=== PATIENT | female | born 1970 ===

== ENCOUNTER 2018-01-20 16:29 | Inpatient (IN) | payer OTHER ==
[2018-01-20] MEDS ORDERED: Sodium Chloride 0.9% 1,000 ML IV ONE (17:18)
[2018-01-20] MEDS ORDERED: Iohexol 240 (50 ml) PO STA (17:18)
[2018-01-20 17:26] LABS: SQUAMOUS EPITHIAL 2 /hpf (0-5); URINE BACTERIA RARE (<OCC); URINE BILIRUBIN NEGATIVE (NEGATIVE); URINE BLOOD NEGATIVE (NEGATIVE); URINE CLARITY Clear (Clear); URINE COLOR Yellow (YELLOW); URINE GLUCOSE (UA) NORMAL (Normal); URINE LEUKOCYTE ESTERASE NEG Leu/uL (Negative); URINE PROTEIN NEGATIVE (NEGATIVE); URINE UROBILINOGEN NORMAL mg/dL (0.2-1.0)
[2018-01-20] MEDS ORDERED: Iodixanol 320 MG/ML 100 ML BOTTLE IV ONE (17:27)
[2018-01-20] MEDS ORDERED: Sodium Chloride 0.9% 1,000 ML ONE (17:29)
[2018-01-20] MEDS ORDERED: Iohexol 240 (50 ml) ONE (17:29)
[2018-01-20 17:33] LABS: HCG,QUALITATIVE URINE NEGATIVE (NEGATIVE)
[2018-01-20 17:48] LABS: BASO # 0.1 K/uL (0.0-0.2); BASO % 0.9 % (0.0-2.0); EOS % 0.3 % (0.0-4.0); HEMOGLOBIN 13.8 g/dL (11.0-16.0); LYMPH # 1.3 K/uL (1.0-4.3); LYMPH % 14.1 % (20.0-40.0); MEAN CELL VOLUME 89.7 fL (81.0-99.0); MEAN CORPUSCULAR HGB CONC 34.6 g/dL (33.0-37.0); MEAN PLATELET VOLUME 9.2 fL (7.2-11.7); MONO # 0.3 K/uL (0.0-0.8); MONO % 3.5 % (0.0-10.0); NEUT # 7.8 K/uL (1.8-7.0); NEUT % 81.2 % (50.0-75.0); RBC 4.46 Mil/uL (3.80-5.20); RED CELL DISTRIBUTION WIDTH 12.7 % (11.5-14.5); WHITE BLOOD COUNT 9.6 K/uL (4.8-10.8)
--- NOTE | 2018-01-20 17:54 | C.PDOC ---
History Of Present Illness Patient presents to ED c/o diffuse abdominal pain, nausea, vomiting and constipation that began 3 days ago. She states she had a very small BM yesterday. Patient denies fever, chest pain, SOB, dysuria, vaginal bleeding/ discharge. PMx of ex lap for persistent left sided abdominal pain, however patient states current pain is different. Time Seen by Provider: 01/20/18 16:40 Chief Complaint (Nursing): Abdominal Pain History Per: Patient History/Exam Limitations: no limitations Onset/Duration Of Symptoms: Days Current Symptoms Are (Timing): Still Present Severity: Moderate Location Of Pain/Discomfort: Diffuse (greatest on left sife ) Associated Symptoms: Nausea, Vomiting, Constipation. denies: Fever, Chills, Diarrhea, Urinary Symptoms Past Medical History Reviewed: Historical Data, Nursing Documentation, Vital Signs Vital Signs: Last Vital Signs Temp 97.5 F L 01/20/18 16:44 Pulse 64 01/20/18 16:44 Resp 20 01/20/18 16:44 BP 115/69 01/20/18 16:44 Pulse Ox 100 01/20/18 17:53 - Medical History PMH: HTN Other Surgeries: ex lap Family History: States: No Known Family Hx - Social History Hx Alcohol Use: No Hx Substance Use: No - Immunization History Hx Tetanus Toxoid Vaccination: No Hx Influenza Vaccination: No Hx Pneumococcal Vaccination: No Review Of Systems Constitutional: Negative for: Fever, Chills Cardiovascular: Negative for: Chest Pain Respiratory: Negative for: Shortness of Breath Gastrointestinal: Positive for: Nausea, Vomiting, Abdominal Pain, Constipation. Negative for: Diarrhea Genitourinary: Negative for: Dysuria, Hematuria, Vaginal Discharge, Vaginal Bleeding Physical Exam - Physical Exam Appears: Well, Non-toxic, In Acute Distress (in moderate pain, moaning ) Skin: Normal Color, Warm, Dry Oral Mucosa: Moist Cardiovascular: Rhythm Regular Respiratory: Normal Breath Sounds, No Rales, No Rhonchi, No Wheezing Gastrointestinal/Abdominal: Bowel Sounds, Soft, Tenderness (diffuse TTP greatest at left periumbilical area, healed surgical scar inferior to umbilicus) Back: Normal Inspection, No CVA Tenderness ED Course And Treatment - Laboratory Results Result Diagrams: 01/20/18 17:41 O2 Sat by Pulse Oximetry: 100 (RA) Pulse Ox Interpretation: Normal Progress Note: Blood work, UA, CT scan abd/pelvis with PO contrast. Patient given IV NS bolus, IV toradol, IV zofran. Disposition - Disposition Disposition Time: 18:00 Condition: STABLE Forms: [facility] (B[place]i) - Clinical Impression Clinical Impression: Abdominal pain, Nausea, Vomiting Physician Patient Turnover Patient Signed Over To: Shanta French Handoff Comments: pending CT scan, labs, reassessment
[2018-01-20 18:02] LABS: ALB/GLOB RATIO 1.4 (1.0-2.1); ALBUMIN 4.5 g/dL (3.5-5.0); ALT/SGPT 21 U/L (9-52); AST/SGOT 18 U/L (14-36); BLOOD UREA NITROGEN 13 mg/dL (7-17); CALCIUM 9.5 mg/dl (8.6-10.4); GFR NON-AFRICAN AMERICAN > 60; LIPASE 121 U/L (23-300)
[2018-01-20] MEDS: Sodium Chloride 0.9% 1,000 ML IV SCH (22:35)
--- NOTE | 2018-01-21 00:14 | CP.PCM.HP ---
Addendum entered and electronically signed by Estephania Yanez DO 01/21/18 03:31: ROS POSITIVES: Abdominal Pain, Bloating, Nausea, Vomiting, constipation. NEGATIVES: Fever, chills, headache, lightheadedness, chest pain, palpitations , shortness of breath, urinary symptoms. Original Note: <Estephania Yaenz - Last Filed: 01/21/18 01:36> History of Present Illness - History of Present Illness History of Present Illness: Ms. Gray is a 47 year old female with a PMHx of Gastritis who presents with complaints of sharp, 10/10, constant, worsening abdominal pain that radiates to the back x 3 days. Patient states that although this episode of abdominal pain started 3 days ago, she has been suffering from chronic abdominal pain for over a year. She stated that she had a colonoscopy 1 month ago which showed gastritis. She was then started on Omeprazole and an unspecified antibiotic which course she completed. Patient also said she recently had a CT [place] of the [place] which showed obstruction. Associated symptoms include nausea, 15 episodes of non-bloody vomiting, bloating, and constipation. She admits to a small bowel movement in the afternoon of admission day and flatulence in the morning of admission day. She stated she had to strain to pass gas and to have a bowel movement. ROS POSITIVES: Abdominal Pain, Bloating, Vomiting, constipation. PMHx: Gastritis PSHx: Exploratory Lap due to persistent left sided abdominal pain. Colonoscopy ( 1 month ago) Allergies: NKDA SocialHx: Denies tobacco, Social EtOH use, Denies illicit drug use FamHx: Denies Meds: Atenolol 50mg Daily Present on Admission - Present on Admission Any Indicators Present on Admission: No Review of Systems - Review of Systems All systems: reviewed and no additional remarkable complaints except (As per HPI ) Review of Systems: As per HPI Past Patient History - Infectious Disease Hx of Infectious Diseases: None - Past Social History Smoking Status: Never Smoked - CARDIAC Hx Hypertension: Yes - GENITOURINARY/GYNECOLOGICAL Other/Comment: Hx of fibroids with removal - PSYCHIATRIC Hx Substance Use: No - SURGICAL HISTORY Hx Surgeries: Yes Other/Comment: Laparsocopy exploratory surgery less than a year ago 01/20/2018 - ANESTHESIA Hx Anesthesia: Yes Hx Anesthesia Reactions: No Hx Malignant Hyperthermia: No Meds Allergies/Adverse Reactions: Allergies Allergy/AdvReac Type Severity Reaction Status Date / Time No Known Allergies Allergy Verified 01/20/18 16:43 Physical Exam - Constitutional Appears: Well, Non-toxic, No Acute Distress - Head Exam Head Exam: ATRAUMATIC, NORMAL INSPECTION, NORMOCEPHALIC - Eye Exam Eye Exam: Normal appearance. absent: Scleral icterus - ENT Exam ENT Exam: Mucous Membranes Moist - Neck Exam Neck exam: Positive for: Normal Inspection. Negative for: Lymphadenopathy - Respiratory Exam Respiratory Exam: Clear to Auscultation Bilateral. absent: Rales, Rhonchi, Wheezes - Cardiovascular Exam Cardiovascular Exam: RRR, +S1, +S2 - GI/Abdominal Exam GI & Abdominal Exam: Normal Bowel Sounds, Soft, Tenderness (Diffuse). absent: Distended, Firm, Guarding, Hernia, Rebound Additional comments: Surgical Scar inferior to umbilicus. - Extremities Exam Extremities exam: Positive for: normal capillary refill, normal inspection. Negative for: pedal edema - Neurological Exam Neurological exam: Alert, Oriented x3 - Psychiatric Exam Psychiatric exam: Normal Affect, Normal Mood - Skin Skin Exam: Dry, Intact, Normal Color, Warm Results - Vital Signs Recent Vital Signs: Last Vital Signs Temp 98 F 01/20/18 21:05 Pulse 67 01/20/18 23:17 Resp 16 01/20/18 23:17 BP 140/75 01/20/18 23:17 Pulse Ox 97 01/20/18 23:17 - Labs Result Diagrams: 01/20/18 17:41 01/20/18 17:41 Labs: Laboratory Results - last 24 hr 01/20/18 01/20/18 01/20/18 17:08 17:41 17:41 WBC 9.6 RBC 4.46 Hgb 13.8 Hct 40.0 MCV 89.7 MCH 31.0 MCHC 34.6 RDW 12.7 Plt Count 293 MPV 9.2 Neut % (Auto) 81.2 H Lymph % (Auto) 14.1 L [place] % (Auto) 3.5 Eos % (Auto) 0.3 Baso % (Auto) 0.9 Neut # (Auto) 7.8 H Lymph # (Auto) 1.3 [place] # (Auto) 0.3 Eos # (Auto) 0.0 Baso # (Auto) 0.1 Sodium 140 Potassium 4.0 Chloride 102 Carbon Dioxide 23 Anion Gap 18 BUN 13 Creatinine 0.6 L Est GFR ( Amer) > 60 Est GFR (Non-Af Amer) > 60 Random Glucose 145 H Calcium 9.5 Total Bilirubin 0.6 AST 18 ALT 21 Alkaline Phosphatase 83 Total Protein 7.6 Albumin 4.5 Globulin 3.2 Albumin/Globulin Ratio 1.4 Lipase 121 Urine Color Yellow Urine Clarity Clear Urine pH 7.0 Ur Specific [place] 1.014 Urine Protein Negative Urine Glucose (UA) Normal Urine Ketones 1+ H Urine Blood Negative Urine Nitrate Negative Urine Bilirubin Negative Urine Urobilinogen Normal Ur Leukocyte Esterase Neg Urine WBC (Auto) < 1 Urine RBC (Auto) 1 Ur Squamous Epith Cells 2 Urine Bacteria Rare Urine HCG, Qual Negative Assessment & Plan - Assessment and Plan (Free Text) Assessment: 47 year old female with a PMHx of Gastritis who presents with complaints of sharp, 10/10, constant, worsening abdominal pain that radiates to the back x [address] Abd on admission showed small bowel obstruction. Patient admitted for evaluation and treatment of small bowel obstruction. Plan: Small Bowel Obstruction CT Abd/Pelvis (Adm): Partial small bowel obstruction probably 2/2 to post- operative adhesions. ED: Zofran, Prochlorperazine, Fluid Bolus NPO Morphine 1 Q4H PRN Zofran 4 Q6H PRN NS @ 150mls/hr Encourage Ambulation Gen. Surgery Consult (Dr. Izquierdo) Hx of HTN Home med: Atenolol 50mg PO Daily. Hx of Gastritis Protonix 40mg Daily. IV for now. PO when tolerating Diet. Proph Protonix SCDs NPO Patient discussed with Attending Estephania Yanez, PGY-2 <Marco A Franklin - Last Filed: 01/21/18 06:35> Results - Vital Signs Recent Vital Signs: Last Vital Signs Temp 98 F 01/20/18 21:05 Pulse 70 01/21/18 00:35 Resp 14 01/21/18 00:35 BP 128/68 01/21/18 00:35 Pulse Ox 97 01/21/18 02:19 - Labs Result Diagrams: 01/20/18 17:41 01/20/18 17:41 Labs: Laboratory Results - last 24 hr 01/20/18 01/20/18 01/20/18 17:08 17:41 17:41 WBC 9.6 RBC 4.46 Hgb 13.8 Hct 40.0 MCV 89.7 MCH 31.0 MCHC 34.6 RDW 12.7 Plt Count 293 MPV 9.2 Neut % (Auto) 81.2 H Lymph % (Auto) 14.1 L [place] % (Auto) 3.5 Eos % (Auto) 0.3 Baso % (Auto) 0.9 Neut # (Auto) 7.8 H Lymph # (Auto) 1.3 [place] # (Auto) 0.3 Eos # (Auto) 0.0 Baso # (Auto) 0.1 Sodium 140 Potassium 4.0 Chloride 102 Carbon Dioxide 23 Anion Gap 18 BUN 13 Creatinine 0.6 L Est GFR ( Amer) > 60 Est GFR (Non-Af Amer) > 60 Random Glucose 145 H Calcium 9.5 Total Bilirubin 0.6 AST 18 ALT 21 Alkaline Phosphatase 83 Total Protein 7.6 Albumin 4.5 Globulin 3.2 Albumin/Globulin Ratio 1.4 Lipase 121 Urine Color Yellow Urine Clarity Clear Urine pH 7.0 Ur Specific [place] 1.014 Urine Protein Negative Urine Glucose (UA) Normal Urine Ketones 1+ H Urine Blood Negative Urine Nitrate Negative Urine Bilirubin Negative Urine Urobilinogen Normal Ur Leukocyte Esterase Neg Urine WBC (Auto) < 1 Urine RBC (Auto) 1 Ur Squamous Epith Cells 2 Urine Bacteria Rare Urine HCG, Qual Negative Assessment & Plan - Date & Time Date: 01/21/18 (I have seen and examined the patient. I agree with the findings and plan of care as documented by Dr. Yanez. Patient with partial small bowel obstruction. Symptomatic treatment. Consult to surgery. NPO. IVF. Monitor for acute changes.) Time: 06:34 Attending/Attestation - Attestation I have personally seen and examined this patient.: Yes I have fully participated in the care of the patient.: Yes I have reviewed all pertinent clinical information: Yes
[2018-01-21] MEDS ORDERED: Influenza Vaccine 60 mcg/0.5 mL SYR (4YR UP) IM ONE (02:42)
--- NOTE | 2018-01-21 03:10 | CP.PCM.CON ---
<Lei Du - Last Filed: 01/21/18 07:22> History of Present Illness - History of Present Illness History of Present Illness: Gen Surgery Consult Note : Dr. Izquierdo 47F with PMHx of gastritis, and laparotomy done in the [place] for left ovarian cyst. Patient states abdominal pain began approximately three days ago. She's had multiple bouts of emesis. Reports passing flatus and having a bowel movement yesterday. At time of examination denied headache/dizziness, chest pain, SOB, dysuria. Reported nausea and moderate abdominal pain which has improved since admission. PMH: as stated above PSH: ex-lap for L ovarian cyst All : NKDA Review of Systems - Review of Systems Review of Systems: 12 pt ROS reviewed, unremarkable except as stated in HPI Past Patient History - Infectious Disease Hx of Infectious Diseases: None - Past Social History Smoking Status: Never Smoked - CARDIAC Hx Hypertension: Yes - MUSCULOSKELETAL/RHEUMATOLOGICAL Hx Falls: No - GASTROINTESTINAL Hx Bowel Surgery: Yes (exploratory laparotomy) - GENITOURINARY/GYNECOLOGICAL Other/Comment: Hx of fibroids with removal - PSYCHIATRIC Hx Substance Use: No - SURGICAL HISTORY Hx Surgeries: Yes Hx Hysterectomy: Yes (2002) Other/Comment: Laparsocopy exploratory 2017 - ANESTHESIA Hx Anesthesia: Yes Hx Anesthesia Reactions: No Hx Malignant Hyperthermia: No Has any member of the family had a problem w/ anesthesia?: No Meds Allergies/Adverse Reactions: Allergies Allergy/AdvReac Type Severity Reaction Status Date / Time No Known Allergies Allergy Verified 01/20/18 16:43 - Medications Medications: Current Medications Atenolol (Tenormin) 50 mg PO DAILY [facility] Sodium Chloride (Sodium Chloride 0.9%) 1,000 mls @ 150 mls/hr IV .Q6H40M [facility] Last Admin: 01/20/18 22:35 Dose: 150 mls/hr Morphine Sulfate (Morphine) 1 mg IVP Q4H PRN PRN Reason: Pain, severe (8-10) Ondansetron HCl (Zofran Inj) 4 mg IVP Q6H PRN PRN Reason: Nausea/Vomiting Pantoprazole Sodium (Protonix Inj) 40 mg IVP DAILY [facility] Pneumococcal Polyvalent Vaccine (Pneumovax 23 Vaccine) 0.5 ml IM .ONCE ONE Stop: 01/23/18 10:01 Physical Exam - Constitutional Appears: No Acute Distress - Head Exam Head Exam: NORMOCEPHALIC - Eye Exam Eye Exam: Normal appearance - ENT Exam ENT Exam: Mucous Membranes Moist - Respiratory Exam Respiratory Exam: NORMAL BREATHING PATTERN - Cardiovascular Exam Cardiovascular Exam: +S1, +S2 - GI/Abdominal Exam GI & Abdominal Exam: Distended, Soft, Tenderness Additional comments: mild distension epigastric tenderness - Neurological Exam Neurological exam: Alert, Oriented x3 - Psychiatric Exam Psychiatric exam: Normal Mood - Skin Skin Exam: Dry, Intact, Warm Results - Vital Signs Recent Vital Signs: Last Vital Signs Temp 98 F 01/20/18 21:05 Pulse 70 01/21/18 00:35 Resp 14 01/21/18 00:35 BP 128/68 01/21/18 00:35 Pulse Ox 97 01/21/18 02:19 - Labs Result Diagrams: 01/20/18 17:41 01/20/18 17:41 Labs: Laboratory Results - last 24 hr 01/20/18 01/20/18 01/20/18 17:08 17:41 17:41 WBC 9.6 RBC 4.46 Hgb 13.8 Hct 40.0 MCV 89.7 MCH 31.0 MCHC 34.6 RDW 12.7 Plt Count 293 MPV 9.2 Neut % (Auto) 81.2 H Lymph % (Auto) 14.1 L [place] % (Auto) 3.5 Eos % (Auto) 0.3 Baso % (Auto) 0.9 Neut # (Auto) 7.8 H Lymph # (Auto) 1.3 [place] # (Auto) 0.3 Eos # (Auto) 0.0 Baso # (Auto) 0.1 Sodium 140 Potassium 4.0 Chloride 102 Carbon Dioxide 23 Anion Gap 18 BUN 13 Creatinine 0.6 L Est GFR ( Amer) > 60 Est GFR (Non-Af Amer) > 60 Random Glucose 145 H Calcium 9.5 Total Bilirubin 0.6 AST 18 ALT 21 Alkaline Phosphatase 83 Total Protein 7.6 Albumin 4.5 Globulin 3.2 Albumin/Globulin Ratio 1.4 Lipase 121 Urine Color Yellow Urine Clarity Clear Urine pH 7.0 Ur Specific [place] 1.014 Urine Protein Negative Urine Glucose (UA) Normal Urine Ketones 1+ H Urine Blood Negative Urine Nitrate Negative Urine Bilirubin Negative Urine Urobilinogen Normal Ur Leukocyte Esterase Neg Urine WBC (Auto) < 1 Urine RBC (Auto) 1 Ur Squamous Epith Cells 2 Urine Bacteria Rare Urine HCG, Qual Negative - Imaging and Cardiology CT scan - abdomen Status: Image reviewed by me, Report reviewed by me Assessment & Plan - Assessment and Plan (Free Text) Assessment: 47F with pSBO Plan: -NPO -IVF -Analgesic prn -Anti-emetic prn -NGT if n/v worsens or abd distension worsens -Encourage ambulation -Further recs per Dr. Felecia Leiva PGY3 <Maicol Izquierdo - Last Filed: 01/22/18 17:33> Meds - Medications Medications: Current Medications Atenolol (Tenormin) 50 mg PO DAILY [facility] Last Admin: 01/22/18 10:51 Dose: Not Given Sodium Chloride (Sodium Chloride 0.9%) 1,000 mls @ 150 mls/hr IV .Q6H40M [facility] Last Admin: 01/22/18 07:35 Dose: Not Given Morphine Sulfate (Morphine) 1 mg IVP Q4H PRN PRN Reason: Pain, severe (8-10) Last Admin: 01/21/18 19:29 Dose: 1 mg Ondansetron HCl (Zofran Inj) 4 mg IVP Q6H PRN PRN Reason: Nausea/Vomiting Last Admin: 01/21/18 19:34 Dose: 4 mg Pantoprazole Sodium (Protonix Inj) 40 mg IVP DAILY [facility] Last Admin: 01/22/18 10:05 Dose: 40 mg Pneumococcal Polyvalent Vaccine (Pneumovax 23 Vaccine) 0.5 ml IM .ONCE ONE Stop: 01/23/18 10:01 Results - Vital Signs Recent Vital Signs: Last Vital Signs Temp 97.8 F 01/22/18 15:00 Pulse 59 L 01/22/18 15:00 Resp 20 01/22/18 15:00 BP 127/82 01/22/18 15:00 Pulse Ox 97 01/22/18 15:00 - Labs Result Diagrams: 01/22/18 07:25 01/22/18 07:25 Labs: Laboratory Results - last 24 hr 01/22/18 01/22/18 07:25 07:25 WBC 8.7 RBC 3.87 Hgb 12.1 Hct 35.1 MCV 90.8 MCH 31.3 H MCHC 34.5 RDW 13.0 Plt Count 261 MPV 9.5 Neut % (Auto) 63.1 Lymph % (Auto) 28.2 [place] % (Auto) 8.2 Eos % (Auto) 0.2 Baso % (Auto) 0.3 Neut # (Auto) 5.5 Lymph # (Auto) 2.5 [place] # (Auto) 0.7 Eos # (Auto) 0.0 Baso # (Auto) 0.0 Sodium 145 Potassium 3.4 L Chloride 109 H Carbon Dioxide 26 Anion Gap 13 BUN 15 Creatinine 0.7 Est GFR ( Amer) > 60 Est GFR (Non-Af Amer) > 60 Random Glucose 95 Calcium 8.4 L Total Bilirubin 0.5 AST 19 ALT 23 Alkaline Phosphatase 52 Total Protein 6.2 L Albumin 3.4 L Globulin 2.8 Albumin/Globulin Ratio 1.2 Attending/Attestation - Attestation I have personally seen and examined this patient.: Yes I have fully participated in the care of the patient.: Yes I have reviewed all pertinent clinical information: Yes Notes (Text): Pt was seen and examined at bedside Agree with above note and assessment Pt with abdominal distention and discomfort Upper abdominal tenderness Labs and radiology reviewed Ass: PSBO Plan : NPO, IVF Replace K Avoid narcotics Plan d.w pt in detail Risk and benefit explained in detail.
[2018-01-21] MEDS: Sodium Chloride 0.9% 1,000 ML IV SCH ×3 (06:13→19:32)
[2018-01-21 08:32] LABS: ALB/GLOB RATIO 1.2 (1.0-2.1); ALBUMIN 3.8 g/dL (3.5-5.0); ALT/SGPT 22 U/L (9-52); AST/SGOT 16 U/L (14-36); BLOOD UREA NITROGEN 15 mg/dL (7-17); GFR NON-AFRICAN AMERICAN > 60
[2018-01-21 08:39] LABS: BASO % 0.3 % (0.0-2.0); HEMOGLOBIN 13.4 g/dL (11.0-16.0); LYMPH % 9.7 % (20.0-40.0); MEAN CELL VOLUME 90.9 fL (81.0-99.0); MEAN CORPUSCULAR HEMOGLOBIN 30.5 pg (27.0-31.0); MEAN CORPUSCULAR HGB CONC 33.5 g/dL (33.0-37.0); MEAN PLATELET VOLUME 9.6 fL (7.2-11.7); MONO # 0.5 K/uL (0.0-0.8); MONO % 5.3 % (0.0-10.0); NEUT # 8.3 K/uL (1.8-7.0); NEUT % 84.7 % (50.0-75.0); PLATELET COUNT 286 K/uL (130-400); RBC 4.39 Mil/uL (3.80-5.20); RED CELL DISTRIBUTION WIDTH 12.8 % (11.5-14.5); WHITE BLOOD COUNT 9.8 K/uL (4.8-10.8)
--- NOTE | 2018-01-21 09:54 | CT ---
Date of service: 01/20/2018 PROCEDURE: CT Abdomen and Pelvis with contrast HISTORY: LEFT PERIUMBILICAL PAIN, PRIOR EX LAP, R/O SBO COMPARISON: None. TECHNIQUE: Contrast dose: 100 mL Visipaque 320 Radiation dose: Total exam DLP = 912.76 mGy-cm. This CT exam was performed using one or more of the following dose reduction techniques: Automated exposure control, adjustment of the mA and/or kV according to patient size, and/or use of iterative reconstruction technique. FINDINGS: LOWER THORAX: Unremarkable. LIVER: Unremarkable. No gross lesion or ductal dilatation. GALLBLADDER AND BILE DUCTS: Unremarkable. PANCREAS: Unremarkable. No gross lesion or ductal dilatation. SPLEEN: Unremarkable. ADRENALS: Unremarkable. No mass. KIDNEYS AND URETERS: Unremarkable. No hydronephrosis. No solid mass. VASCULATURE: Unremarkable. No aortic aneurysm. BOWEL: Multiple loops of mildly dilated small bowel with long collapsed segment of ileum distal to this dilated small bowel. Findings concerning for mechanical small bowel obstruction. Followup advised. No other abnormal bowel loops are appreciated. APPENDIX: Normal appendix. PERITONEUM: Unremarkable. No free fluid. No free air. LYMPH NODES: Unremarkable. No enlarged lymph nodes. BLADDER: Poorly distended. No gross abnormality. REPRODUCTIVE: Status post hysterectomy BONES: No acute fracture. OTHER FINDINGS: None. IMPRESSION: Findings consistent with mechanical small bowel obstruction. The obstruction though not specifically localized is likely roughly at the level of the jejunoileal junction. Possibly secondary to post surgical adhesion. No additional abnormality demonstrated. The preliminary findings for this examination were reported by [employer] at 8:10 p.m. on 01/20/2018. There is concurrence of this report with the preliminary findings.
[2018-01-21] MEDS ORDERED: Lidocaine 2% Jelly (Uro-Jet) TOP ONE (10:21)
[2018-01-21 10:33] LABS: LYMPHOCYTE 10 % (20-40); MONOCYTE 5 % (0-10); NEUTROPHIL 85 % (50-75); PLATELET ESTIMATE NORMAL (NORMAL); TOTAL CELLS COUNTED 100
--- NOTE | 2018-01-21 14:09 | CP.PCM.PN ---
<Maria Del Rosario Guevara Y - Last Filed: 01/21/18 16:41> Subjective - Date & Time of Evaluation Date of Evaluation: 01/21/18 Time of Evaluation: 09:15 - Subjective Subjective: PGY-1 Medicine Progress Note for Dr. Phelps Patient was seen and examined today at bedside in no acute distress. Patient continues to vomit: Overnight nurse reports no further episodes after midnight. Patient reports two episodes of non-bilious vomit with bloody streaks. She continues to feel nauseous despite ATC anti-emetics. Has not been able to urinate or have a BM since vomiting began. Denies chest pain, shortness of breath, abdominal pain, numbness, tingling, headache. Surgery unable to place NGT after 2 attempts with a 16 [place], will attempt with smaller gauge later this PM. Objective - Vital Signs/Intake and Output Vital Signs (last 24 hours): Temp Pulse Resp BP Pulse Ox 98.2 F 63 18 115/63 100 01/21/18 08:18 01/21/18 08:18 01/21/18 08:18 01/21/18 08:18 01/21/18 08:18 Intake and Output: 01/21/18 01/21/18 06:59 18:59 Intake Total 900 Balance 900 - Medications Medications: Current Medications Atenolol (Tenormin) 50 mg PO DAILY [facility] Last Admin: 01/21/18 10:33 Dose: Not Given Sodium Chloride (Sodium Chloride 0.9%) 1,000 mls @ 150 mls/hr IV .Q6H40M [facility] Last Admin: 01/21/18 06:13 Dose: 150 mls/hr Morphine Sulfate (Morphine) 1 mg IVP Q4H PRN PRN Reason: Pain, severe (8-10) Last Admin: 01/21/18 06:06 Dose: 1 mg Ondansetron HCl (Zofran Inj) 4 mg IVP Q6H PRN PRN Reason: Nausea/Vomiting Last Admin: 01/21/18 06:05 Dose: 4 mg Pantoprazole Sodium (Protonix Inj) 40 mg IVP DAILY [facility] Last Admin: 01/21/18 10:33 Dose: 40 mg Pneumococcal Polyvalent Vaccine (Pneumovax 23 Vaccine) 0.5 ml IM .ONCE ONE Stop: 01/23/18 10:01 - Labs Labs: 01/21/18 08:01 01/21/18 08:01 - Constitutional Appears: Non-toxic, No Acute Distress - Head Exam Head Exam: ATRAUMATIC, NORMOCEPHALIC - Eye Exam Eye Exam: EOMI, Normal appearance - ENT Exam ENT Exam: Mucous Membranes Dry, Normal Exam - Respiratory Exam Respiratory Exam: Clear to Ausculation Bilateral, NORMAL BREATHING PATTERN. absent: Rales, Rhonchi, Wheezes - Cardiovascular Exam Cardiovascular Exam: REGULAR RHYTHM, +S1, +S2. absent: Murmur - GI/Abdominal Exam GI & Abdominal Exam: Soft, Tenderness, Normal Bowel Sounds. absent: Firm, Guarding Additional comments: surgical scar inferior to umbilicus, diffuse tenderness to palpation - Extremities Exam Extremities Exam: Full ROM, Normal Capillary Refill, Normal Inspection. absent : Pedal Edema - Neurological Exam Neurological Exam: Alert, Awake, Oriented x3 - Psychiatric Exam Psychiatric exam: Normal Affect, Normal Mood - Skin Skin Exam: Dry, Intact, Normal Color Assessment and Plan - Assessment and Plan (Free Text) Assessment: 47F PMH gastritis, HTN admitted for SBO. Plan: 1) Small Bowel Obstruction - CT A/P (01/21): SBO roughly at the jejunoileal junction, possibly secondary to surgical adhesion (03/2017) ED: Zofran, Prochlorperazine, Fluid Bolus - General Surgery consulted: Dr. Izquierod - bessie appreciated - no surgical intervention at this time - NGT placement attempts x2 with 16 [place]. will locate a smaller size and retry. - NPO - Morphine 1mg q4h prn - Zofran 4mg q6h prn - NS @ 150mls/hr - encourage ambulation 2) Hx of HTN - home Atenolol 50mg po daily, held while vomiting 3) Hx of Gastritis - Protonix 40mg Daily. IV for now, PO when tolerating diet 4) PPx DVT: chemical AC CI d/t recent GI bleed, SCDs GI: Protonix 40mg daily IV -> PO once tolerating diet NPO, ADAT d/w Dr. Lenin Guevara PGY-1 <Eben Pehlps - Last Filed: 01/24/18 19:20> Objective - Vital Signs/Intake and Output Vital Signs (last 24 hours): Temp Pulse Resp BP Pulse Ox 97.5 F L 65 20 126/77 97 01/24/18 07:00 01/24/18 10:31 01/24/18 07:00 01/24/18 10:31 01/24/18 07:00 - Labs Labs: 01/24/18 06:58 01/24/18 06:58 Attending/Attestation - Attestation I have personally seen and examined this patient.: Yes I have fully participated in the care of the patient.: Yes I have reviewed all pertinent clinical information, including history, physical exam and plan: Yes Notes (Text): 01/24/18 19:20 This is a late entry. Care of this patient was gone over in detail with the resident. Eben Phelps D.O.
[2018-01-21 17:21] VITALS: RESP 20
[2018-01-22] MEDS: Sodium Chloride 0.9% 1,000 ML IV SCH ×3 (00:55→07:35)
[2018-01-22 07:40] LABS: BASO % 0.3 % (0.0-2.0); EOS % 0.2 % (0.0-4.0); HEMOGLOBIN 12.1 g/dL (11.0-16.0); LYMPH # 2.5 K/uL (1.0-4.3); LYMPH % 28.2 % (20.0-40.0); MEAN CELL VOLUME 90.8 fL (81.0-99.0); MEAN CORPUSCULAR HEMOGLOBIN 31.3 pg (27.0-31.0); MEAN CORPUSCULAR HGB CONC 34.5 g/dL (33.0-37.0); MEAN PLATELET VOLUME 9.5 fL (7.2-11.7); MONO # 0.7 K/uL (0.0-0.8); MONO % 8.2 % (0.0-10.0); NEUT # 5.5 K/uL (1.8-7.0); NEUT % 63.1 % (50.0-75.0); NRBC % 0.1 % (0.0-2.0); RBC 3.87 Mil/uL (3.80-5.20); WHITE BLOOD COUNT 8.7 K/uL (4.8-10.8)
[2018-01-22 07:53] LABS: ALB/GLOB RATIO 1.2 (1.0-2.1); ALBUMIN 3.4 g/dL (3.5-5.0); ALT/SGPT 23 U/L (9-52); AST/SGOT 19 U/L (14-36); BLOOD UREA NITROGEN 15 mg/dL (7-17); CALCIUM 8.4 mg/dl (8.6-10.4); GFR NON-AFRICAN AMERICAN > 60
--- NOTE | 2018-01-22 08:21 | CP.PCM.PN ---
<Jorge Nathan - Last Filed: 01/22/18 08:19> Subjective - Date & Time of Evaluation Date of Evaluation: 01/22/18 Time of Evaluation: 08:19 - Subjective Subjective: General Surgery: Dr Izquierdo Pt S&E. HEIDI. Has had multiple liquid BMs, passing flatus. Minimal output from NGT. Pain resolved. Objective - Vital Signs/Intake and Output Vital Signs (last 24 hours): Temp Pulse Resp BP Pulse Ox 97.7 F 65 20 134/74 98 01/21/18 23:20 01/21/18 23:20 01/21/18 23:20 01/21/18 23:20 01/21/18 23:20 Intake and Output: 01/22/18 01/22/18 06:59 18:59 Intake Total 2400 Output Total 50 Balance 2350 - Medications Medications: Current Medications Atenolol (Tenormin) 50 mg PO DAILY [facility] Last Admin: 01/21/18 10:33 Dose: Not Given Sodium Chloride (Sodium Chloride 0.9%) 1,000 mls @ 150 mls/hr IV .Q6H40M [facility] Last Admin: 01/22/18 06:26 Dose: 150 mls/hr Morphine Sulfate (Morphine) 1 mg IVP Q4H PRN PRN Reason: Pain, severe (8-10) Last Admin: 01/21/18 19:29 Dose: 1 mg Ondansetron HCl (Zofran Inj) 4 mg IVP Q6H PRN PRN Reason: Nausea/Vomiting Last Admin: 01/21/18 19:34 Dose: 4 mg Pantoprazole Sodium (Protonix Inj) 40 mg IVP DAILY [facility] Last Admin: 01/21/18 10:33 Dose: 40 mg Pneumococcal Polyvalent Vaccine (Pneumovax 23 Vaccine) 0.5 ml IM .ONCE ONE Stop: 01/23/18 10:01 - Labs Labs: 01/22/18 07:25 01/22/18 07:25 - Constitutional Appears: Non-toxic - ENT Exam ENT Exam: Mucous Membranes Dry - Respiratory Exam Respiratory Exam: absent: Accessory Muscle Use, Respiratory Distress - Cardiovascular Exam Cardiovascular Exam: REGULAR RHYTHM. absent: Tachycardia - GI/Abdominal Exam GI & Abdominal Exam: Soft. absent: Distended, Tenderness Assessment and Plan - Assessment and Plan (Free Text) Assessment: 47F with SBO; resolving Plan: clamp trial NGT will check residuals this afternoon will d/c NGT and start CLD if minimal d/w Dr Felecia Nathan, PGY4 <Maicol Izquierdo - Last Filed: 01/22/18 17:42> Objective - Vital Signs/Intake and Output Vital Signs (last 24 hours): Temp Pulse Resp BP Pulse Ox 97.8 F 59 L 20 127/82 97 01/22/18 15:00 01/22/18 15:00 01/22/18 15:00 01/22/18 15:00 01/22/18 15:00 Intake and Output: 01/22/18 01/22/18 06:59 18:59 Intake Total 2400 1200 Output Total 50 Balance 2350 1200 - Medications Medications: Current Medications Atenolol (Tenormin) 50 mg PO DAILY [facility] Last Admin: 01/22/18 10:51 Dose: Not Given Sodium Chloride (Sodium Chloride 0.9%) 1,000 mls @ 150 mls/hr IV .Q6H40M [facility] Last Admin: 01/22/18 07:35 Dose: Not Given Morphine Sulfate (Morphine) 1 mg IVP Q4H PRN PRN Reason: Pain, severe (8-10) Last Admin: 01/21/18 19:29 Dose: 1 mg Ondansetron HCl (Zofran Inj) 4 mg IVP Q6H PRN PRN Reason: Nausea/Vomiting Last Admin: 01/21/18 19:34 Dose: 4 mg Pantoprazole Sodium (Protonix Inj) 40 mg IVP DAILY [facility] Last Admin: 01/22/18 10:05 Dose: 40 mg Pneumococcal Polyvalent Vaccine (Pneumovax 23 Vaccine) 0.5 ml IM .ONCE ONE Stop: 01/23/18 10:01 - Labs Labs: 01/22/18 07:25 01/22/18 07:25 Attending/Attestation - Attestation I have personally seen and examined this patient.: Yes I have fully participated in the care of the patient.: Yes I have reviewed all pertinent clinical information, including history, physical exam and plan: Yes Notes (Text): Pt was seen and examined at bedside Agree with above note and assessment Pt is improving clinically start liquid diet Avoid narcotics Plan d.w pt in detail Risk and benefit explained in detail.
[2018-01-22] MEDS ORDERED: Potassium Chloride 20 mEq ER Tab PO ONE (09:52)
--- NOTE | 2018-01-22 11:09 | RAD ---
Date of service: 01/22/2018 HISTORY: Evaluation of SBO COMPARISON: No prior. FINDINGS: BOWEL: Scattered stool present.. No obstruction. BONES: Normal. OTHER FINDINGS: NG tube inserted tip near the gastric antrum IMPRESSION: No bowel obstruction suggested. NG tube tip near gastric antrum
--- NOTE | 2018-01-22 19:04 | CP.PCM.PN ---
<Maria Del Rosario Guevara - Last Filed: 01/22/18 19:01> Subjective - Date & Time of Evaluation Date of Evaluation: 01/22/18 Time of Evaluation: 10:00 - Subjective Subjective: PGY-1 Medicine Progress Note for Dr. Phelps Patient was seen and examined today at bedside in no acute distress. Nurse reports no overnight events. Patient reports no nausea or vomiting overnight and is passing flatus. Notes hunger, but understands that she is still NPO. Denies chest pain, shortness of breath, abdominal pain, fever, chills, numbness , tingling, headache. Objective - Vital Signs/Intake and Output Vital Signs (last 24 hours): Temp Pulse Resp BP Pulse Ox 97.8 F 59 L 20 127/82 97 01/22/18 15:00 01/22/18 15:00 01/22/18 15:00 01/22/18 15:00 01/22/18 15:00 Intake and Output: 01/22/18 01/23/18 18:59 06:59 Intake Total 1200 Balance 1200 - Medications Medications: Current Medications Atenolol (Tenormin) 50 mg PO DAILY [facility] Last Admin: 01/22/18 10:51 Dose: Not Given Sodium Chloride (Sodium Chloride 0.9%) 1,000 mls @ 150 mls/hr IV .Q6H40M [facility] Last Admin: 01/22/18 07:35 Dose: Not Given Morphine Sulfate (Morphine) 1 mg IVP Q4H PRN PRN Reason: Pain, severe (8-10) Last Admin: 01/21/18 19:29 Dose: 1 mg Ondansetron HCl (Zofran Inj) 4 mg IVP Q6H PRN PRN Reason: Nausea/Vomiting Last Admin: 01/21/18 19:34 Dose: 4 mg Pantoprazole Sodium (Protonix Inj) 40 mg IVP DAILY [facility] Last Admin: 01/22/18 10:05 Dose: 40 mg Pneumococcal Polyvalent Vaccine (Pneumovax 23 Vaccine) 0.5 ml IM .ONCE ONE Stop: 01/23/18 10:01 - Labs Labs: 01/22/18 07:25 01/22/18 07:25 - Constitutional Appears: Non-toxic, No Acute Distress - Head Exam Head Exam: ATRAUMATIC, NORMOCEPHALIC - Eye Exam Eye Exam: EOMI, Normal appearance - ENT Exam ENT Exam: Mucous Membranes Moist Additional comments: NGT in place, suctioning well, less than 50ml in canister overnight - Respiratory Exam Respiratory Exam: Clear to Ausculation Bilateral, NORMAL BREATHING PATTERN. absent: Rales, Rhonchi, Wheezes - Cardiovascular Exam Cardiovascular Exam: REGULAR RHYTHM, +S1, +S2. absent: Murmur - GI/Abdominal Exam GI & Abdominal Exam: Soft, Normal Bowel Sounds. absent: Firm, Guarding, Rigid, Tenderness, Rebound Additional comments: surgical scar inferior to umbilicus, no tenderness to shallow or deep palpation - Extremities Exam Extremities Exam: Full ROM, Normal Capillary Refill. absent: Pedal Edema - Neurological Exam Neurological Exam: Alert, Awake, Oriented x3 - Psychiatric Exam Psychiatric exam: Normal Affect, Normal Mood - Skin Skin Exam: Dry, Normal Color, Warm Assessment and Plan - Assessment and Plan (Free Text) Assessment: 47yoF PMH gastritis, HTN admitted for SBO. Plan: Small Bowel Obstruction - CT A/P (01/21): SBO roughly at the jejunoileal junction, possibly secondary to surgical adhesion (03/2017) - Abd Flat plate (01/22): No obstruction noted. NGT in place ED: Zofran, Prochlorperazine, Fluid Bolus - General Surgery consulted: Dr. Izquierdo - recmilan appreciated - no surgical intervention at this time - NGT clamped - ADAT. Currently at [facility] for Dinner. Will observe if tolerates. - Morphine 1mg q4h prn - Zofran 4mg q6h prn - NS @ 150mls/hr - encourage ambulation Hypertension - home Atenolol 50mg po daily, held while vomiting Gastritis - Protonix 40mg Daily. IV for now, PO when tolerating diet PPx DVT: chemical AC CI d/t recent GI bleed, SCDs GI: Protonix 40mg daily IV -> PO once tolerating diet CLD, ADAT d/w Dr. Lenin Guevara PGY-1 <Eben Phelps - Last Filed: 01/24/18 19:22> Objective - Vital Signs/Intake and Output Vital Signs (last 24 hours): Temp Pulse Resp BP Pulse Ox 97.5 F L 65 20 126/77 97 01/24/18 07:00 01/24/18 10:31 01/24/18 07:00 01/24/18 10:31 01/24/18 07:00 - Labs Labs: 01/24/18 06:58 01/24/18 06:58 Attending/Attestation - Attestation I have personally seen and examined this patient.: Yes I have fully participated in the care of the patient.: Yes I have reviewed all pertinent clinical information, including history, physical exam and plan: Yes Notes (Text): 01/24/18 19:22 This is a late entry. Care of this patient was gone over in detail with the resident. Eben Phelps D.O.
[2018-01-23] MEDS: Sodium Chloride 0.9% 1,000 ML IV SCH (02:56)
[2018-01-23 07:26] LABS: BASO % 0.3 % (0.0-2.0); EOS # 0.1 K/uL (0.0-0.7); EOS % 1.3 % (0.0-4.0); HEMOGLOBIN 11.6 g/dL (11.0-16.0); LYMPH # 2.9 K/uL (1.0-4.3); LYMPH % 49.8 % (20.0-40.0); MEAN CELL VOLUME 89.8 fL (81.0-99.0); MEAN CORPUSCULAR HEMOGLOBIN 30.7 pg (27.0-31.0); MEAN CORPUSCULAR HGB CONC 34.2 g/dL (33.0-37.0); MEAN PLATELET VOLUME 9.5 fL (7.2-11.7); MONO # 0.4 K/uL (0.0-0.8); MONO % 7.1 % (0.0-10.0); NEUT # 2.4 K/uL (1.8-7.0); NEUT % 41.5 % (50.0-75.0); RBC 3.77 Mil/uL (3.80-5.20); WHITE BLOOD COUNT 5.7 K/uL (4.8-10.8)
[2018-01-23 07:47] LABS: ALB/GLOB RATIO 1.2 (1.0-2.1); ALBUMIN 3.3 g/dL (3.5-5.0); ALT/SGPT 34 U/L (9-52); AST/SGOT 33 U/L (14-36); BLOOD UREA NITROGEN 10 mg/dL (7-17); CALCIUM 8.4 mg/dl (8.6-10.4); GFR NON-AFRICAN AMERICAN > 60
[2018-01-23] MEDS ORDERED: Pneumococcal 23-Valent Vaccine IM ONE (10:00)
--- NOTE | 2018-01-23 13:35 | CP.PCM.PN ---
<Abdifatah Norman - Last Filed: 01/23/18 13:32> Subjective - Date & Time of Evaluation Date of Evaluation: 01/23/18 Time of Evaluation: 09:30 - Subjective Subjective: PGY-1 gen surgery note for Dr Izquierdo Patient is seen and examined at bedside. Pain states feeling much better than previous days. Patient denies abdominal pain or any further episode of vomiting. Patient passed gas and had 3x bowel movements this morning. Patient is tolerating clear liquid diet and OOB, ambulating. Objective - Vital Signs/Intake and Output Vital Signs (last 24 hours): Temp Pulse Resp BP Pulse Ox 97.8 F 50 L 20 122/78 98 01/23/18 08:03 01/23/18 08:03 01/23/18 08:03 01/23/18 08:03 01/23/18 08:03 Intake and Output: 01/23/18 01/23/18 06:59 18:59 Intake Total 1200 Balance 1200 - Medications Medications: Current Medications Atenolol (Tenormin) 50 mg PO DAILY [facility] Last Admin: 01/23/18 10:05 Dose: Not Given Sodium Chloride (Sodium Chloride 0.9%) 1,000 mls @ 150 mls/hr IV .Q6H40M [facility] Last Admin: 01/23/18 02:56 Dose: 150 mls/hr Potassium Chloride (Potassium Chloride 20 Meq/100 Ml) 20 meq in 100 mls @ 50 mls/hr IVPB ONCE ONE Stop: 01/23/18 15:19 Morphine Sulfate (Morphine) 1 mg IVP Q4H PRN PRN Reason: Pain, severe (8-10) Last Admin: 01/21/18 19:29 Dose: 1 mg Ondansetron HCl (Zofran Inj) 4 mg IVP Q6H PRN PRN Reason: Nausea/Vomiting Last Admin: 01/21/18 19:34 Dose: 4 mg Pantoprazole Sodium (Protonix Inj) 40 mg IVP DAILY [facility] Last Admin: 01/23/18 10:05 Dose: 40 mg - Labs Labs: 01/23/18 06:57 01/23/18 06:57 - Constitutional Appears: Non-toxic, No Acute Distress - Head Exam Head Exam: ATRAUMATIC, NORMAL INSPECTION, NORMOCEPHALIC - Eye Exam Eye Exam: EOMI, Normal appearance - ENT Exam ENT Exam: Mucous Membranes Moist, Normal Exam - Neck Exam Neck Exam: Full ROM, Normal Inspection - Respiratory Exam Respiratory Exam: NORMAL BREATHING PATTERN. absent: Accessory Muscle Use, Respiratory Distress - GI/Abdominal Exam GI & Abdominal Exam: Soft. absent: Tenderness - Extremities Exam Extremities Exam: Full ROM, Normal Inspection - Back Exam Back Exam: NORMAL INSPECTION - Neurological Exam Neurological Exam: Alert, Awake, Oriented x3 - Psychiatric Exam Psychiatric exam: Normal Affect, Normal Mood - Skin Skin Exam: Intact, Normal Color, Warm Assessment and Plan - Assessment and Plan (Free Text) Assessment: 47F with SBO; resolving Plan: Advance diet to FLD, plan to advance to soft diet encourage OOB and ambulation plan to be discussed with Dr Felecia Norman, PGY-1 <Olvin Lo - Last Filed: 01/23/18 15:38> Objective - Vital Signs/Intake and Output Vital Signs (last 24 hours): Temp Pulse Resp BP Pulse Ox 97.8 F 50 L 20 122/78 98 01/23/18 08:03 01/23/18 08:03 01/23/18 08:03 01/23/18 08:03 01/23/18 08:03 Intake and Output: 01/23/18 01/23/18 06:59 18:59 Intake Total 1200 Balance 1200 - Medications Medications: Current Medications Atenolol (Tenormin) 50 mg PO DAILY [facility] Last Admin: 01/23/18 10:05 Dose: Not Given Morphine Sulfate (Morphine) 1 mg IVP Q4H PRN PRN Reason: Pain, severe (8-10) Last Admin: 01/21/18 19:29 Dose: 1 mg Ondansetron HCl (Zofran Inj) 4 mg IVP Q6H PRN PRN Reason: Nausea/Vomiting Last Admin: 01/21/18 19:34 Dose: 4 mg Pantoprazole Sodium (Protonix Inj) 40 mg IVP DAILY [facility] Last Admin: 01/23/18 10:05 Dose: 40 mg - Labs Labs: 01/23/18 06:57 01/23/18 06:57 Assessment and Plan - Assessment and Plan (Free Text) Plan: Clear for DC for surgical standpoint DW Dr. Izquierdo
--- NOTE | 2018-01-23 14:36 | CP.PCM.PN ---
<Maria Del Rosario Guevara - Last Filed: 01/23/18 15:36> Subjective - Date & Time of Evaluation Date of Evaluation: 01/23/18 Time of Evaluation: 14:00 - Subjective Subjective: PGY-1 Medicine Progress Note for Dr. Phelps Patient was seen and examined today at bedside in no acute distress. Nurse reports no overnight events. Patient reports no nausea or vomiting overnight and is passing flatus and had one BM ovenight. Notes hunger, and tolerated CLD, was advanced to FLD today and tolerating well. Denies chest pain, shortness of breath, abdominal pain, fever, chills, numbness, tingling, headache. Objective - Vital Signs/Intake and Output Vital Signs (last 24 hours): Temp Pulse Resp BP Pulse Ox 97.8 F 50 L 20 122/78 98 01/23/18 08:03 01/23/18 08:03 01/23/18 08:03 01/23/18 08:03 01/23/18 08:03 Intake and Output: 01/23/18 01/23/18 06:59 18:59 Intake Total 1200 Balance 1200 - Medications Medications: Current Medications Atenolol (Tenormin) 50 mg PO DAILY [facility] Last Admin: 01/23/18 10:05 Dose: Not Given Sodium Chloride (Sodium Chloride 0.9%) 1,000 mls @ 150 mls/hr IV .Q6H40M [facility] Last Admin: 01/23/18 02:56 Dose: 150 mls/hr Potassium Chloride (Potassium Chloride 20 Meq/100 Ml) 20 meq in 100 mls @ 50 mls/hr IVPB ONCE ONE Stop: 01/23/18 15:19 Last Admin: 01/23/18 13:37 Dose: 50 mls/hr Morphine Sulfate (Morphine) 1 mg IVP Q4H PRN PRN Reason: Pain, severe (8-10) Last Admin: 01/21/18 19:29 Dose: 1 mg Ondansetron HCl (Zofran Inj) 4 mg IVP Q6H PRN PRN Reason: Nausea/Vomiting Last Admin: 01/21/18 19:34 Dose: 4 mg Pantoprazole Sodium (Protonix Inj) 40 mg IVP DAILY [facility] Last Admin: 01/23/18 10:05 Dose: 40 mg - Labs Labs: 01/23/18 06:57 01/23/18 06:57 - Constitutional Appears: Non-toxic, No Acute Distress - Head Exam Head Exam: ATRAUMATIC, NORMOCEPHALIC - Eye Exam Eye Exam: EOMI, Normal appearance - ENT Exam ENT Exam: Mucous Membranes Moist, Normal Exam - Respiratory Exam Respiratory Exam: Clear to Ausculation Bilateral, NORMAL BREATHING PATTERN. absent: Rales, Rhonchi, Wheezes - Cardiovascular Exam Cardiovascular Exam: REGULAR RHYTHM, +S1, +S2. absent: Gallop, Murmur - GI/Abdominal Exam GI & Abdominal Exam: Soft, Normal Bowel Sounds. absent: Tenderness Additional comments: surgical scar inferior to umbilicus, no tenderness to shallow or deep palpation - Extremities Exam Extremities Exam: Full ROM, Normal Capillary Refill. absent: Pedal Edema Additional comments: IV in right hand peripheral pulses palpable (radial, PT) - Neurological Exam Neurological Exam: Alert, Awake, Oriented x3 - Psychiatric Exam Psychiatric exam: Normal Affect, Normal Mood - Skin Skin Exam: Dry, Normal Color Assessment and Plan - Assessment and Plan (Free Text) Assessment: 47yoF PMH gastritis, HTN admitted for SBO. Plan: Small Bowel Obstruction - CT A/P (01/21): SBO roughly at the jejunoileal junction, possibly secondary to surgical adhesion (03/2017) - Abd Flat plate (01/22): No obstruction noted. NGT in place ED: Zofran, Prochlorperazine, Fluid Bolus - General Surgery consulted: Dr. Izquierdo - recs appreciated - no surgical intervention at this time - NGT removed - ADAT. Tolerated CLD well, advanced to FLD. Will observe if tolerates. - IVF stopped since patient is now tolerating liquid diet - Morphine 1mg q4h prn - Zofran 4mg q6h prn - encourage ambulation Hypertension - home Atenolol 50mg po daily, held while vomiting Gastritis - Protonix 40mg Daily. IV for now, PO when tolerating diet PPx DVT: chemical AC CI d/t recent GI bleed, SCDs GI: Protonix 40mg IV daily CLD, ADAT d/w Dr. Lenin Guevara PGY-1 <Eben Phelps - Last Filed: 01/24/18 19:23> Objective - Vital Signs/Intake and Output Vital Signs (last 24 hours): Temp Pulse Resp BP Pulse Ox 97.5 F L 65 20 126/77 97 01/24/18 07:00 01/24/18 10:31 01/24/18 07:00 01/24/18 10:31 01/24/18 07:00 - Labs Labs: 01/24/18 06:58 01/24/18 06:58 Attending/Attestation - Attestation I have personally seen and examined this patient.: Yes I have fully participated in the care of the patient.: Yes I have reviewed all pertinent clinical information, including history, physical exam and plan: Yes Notes (Text): 01/24/18 19:23 This is a late entry. Care of this patient was gone over in detail with the resident Eben Phelps D.O.
[2018-01-24 00:05] VITALS: TEMP 97.5
--- NOTE | 2018-01-24 06:59 | CP.PCM.PN ---
<Edson Mckay - Last Filed: 01/24/18 06:59> Objective - Vital Signs/Intake and Output Vital Signs (last 24 hours): Temp Pulse Resp BP Pulse Ox 97.5 F L 55 L 20 143/83 99 01/24/18 00:00 01/24/18 00:00 01/24/18 00:00 01/24/18 00:00 01/24/18 00:00 - Medications Medications: Current Medications Atenolol (Tenormin) 50 mg PO DAILY [facility] Last Admin: 01/23/18 10:05 Dose: Not Given Morphine Sulfate (Morphine) 1 mg IVP Q4H PRN PRN Reason: Pain, severe (8-10) Last Admin: 01/21/18 19:29 Dose: 1 mg Ondansetron HCl (Zofran Inj) 4 mg IVP Q6H PRN PRN Reason: Nausea/Vomiting Last Admin: 01/21/18 19:34 Dose: 4 mg Pantoprazole Sodium (Protonix Inj) 40 mg IVP DAILY [facility] Last Admin: 01/23/18 10:05 Dose: 40 mg - Labs Labs: 01/23/18 06:57 01/23/18 06:57 <Eben Phelps - Last Filed: 01/24/18 09:53> Subjective - Date & Time of Evaluation Date of Evaluation: 01/24/18 Time of Evaluation: 09:20 - Subjective Subjective: Hospitalist Progress Note Patient was seen and examined at 9:20 AM 01/24/18 Bed 552 B with the help of Andorran translation provided by Nurse Chaya 47 year old female who was admitted on 01/21/18 for treatment of SBO. CT Abdomen and Pelvis (01/21/18): SBO roughly at the jejunoileal junction, possibly secondary to surgical adhesion (03/2017) Abdominal Flat plate (01/22): No obstruction noted. NGT in place She was made NPO, NGT placed, and treated with IVF After watery bowel movements she was started on clear liquids 01/23/18 and this was advanced to soft She is currently tolerating her diet without N/V, passing flatus, and having soft to hard bowel movements this morning Patient has been cleared by Surgery Team for discharge Patient is also stable for discharge from Medicine Team perspective Currently upon FULL ROS: NO reynold pain/palpitations NO SOB/coughing/wheezing NO dysphagia/odynophagia NO abdominal pain NO n/v/d/c NO burning/pain with urination NO lightheadedness/dizziness NO headache NO new changes in vision NO new changes in hearing NO paresthesias General: AAOx3, NAD HEENT: NCA, EOMI, PERRLA, NO cervical/supraclavicular/submandibular lymphadenopathy, NO pharyngeal erythema/exudate, Nasal turbinates are nonerythematous/nonedematous, NO thyromegaly Cardio: NS1 and NS2, NO M/R/G Resp: CTA B/L, NO R/R/W GI: BSx4, Soft, NT, ND, NO HSM, NO guarding/rebound tenderness Ext: Pulses are strong and equal B/L UE and LE, Capillary refill is 2 seconds, NO edema Neuro: CN II through XII are grossly intact Assessments: 1). SBO 2). Hx HTN: due to hear rate in the 50s will discharge on 25 mg instead of 50 mg 3). Hx Gastritis: will discharge on Omeprazole 40 mg PO 1x/day 4). Hx Laparotomy in DR for Oviaian Cyst and Hx Hysterectomy: will need to follow up with clinic The following instructions were explained to patient with the help of Nurse Chaya who translated Andorran and a copy will need to be provided to her in Andorran: 1). You stated that you do NOT have a primary care doctor. Therefore please schedule follow up to take place in the next 7 days with the following clinic to help coordinate your health care: [facility] [address] [place] [address] 2). Please have the following prescription filled at your pharmacy on your way home from the hospital and start taking them on 01/25/18. Future prescriptions refills will have to be obtained through the above clinic. Atenolol 25 mg, 1 tablet by mouth 1 time a day (8 AM), Dispense #30, NO refills Omeprazole 40 mg, 1 tablet bymouth 1 time a day (8 PM), Dispense #30, NO refills 3). Through the clinic please also make sure that you schedule a ORIENTATION & MOBILITY SPECIALIST exam. 4). Should your symptoms return, please go to the nearest emergency room. 5). Please take care and be well. Eben Phelps D.O. Objective - Vital Signs/Intake and Output Vital Signs (last 24 hours): Temp Pulse Resp BP Pulse Ox 97.5 F L 54 L 20 122/56 L 97 01/24/18 07:00 01/24/18 07:00 01/24/18 07:00 01/24/18 07:00 01/24/18 07:00 - Medications Medications: Current Medications Atenolol (Tenormin) 50 mg PO DAILY [facility] Last Admin: 01/23/18 10:05 Dose: Not Given Morphine Sulfate (Morphine) 1 mg IVP Q4H PRN PRN Reason: Pain, severe (8-10) Last Admin: 01/21/18 19:29 Dose: 1 mg Ondansetron HCl (Zofran Inj) 4 mg IVP Q6H PRN PRN Reason: Nausea/Vomiting Last Admin: 01/21/18 19:34 Dose: 4 mg Pantoprazole Sodium (Protonix Inj) 40 mg IVP DAILY [facility] Last Admin: 01/23/18 10:05 Dose: 40 mg Potassium Chloride (K-Dur 20 Meq Er Tab) 40 meq PO ONCE ONE Stop: 01/24/18 10:01 - Labs Labs: 01/24/18 06:58 01/24/18 06:58
[2018-01-24 07:23] LABS: BASO # 0.1 K/uL (0.0-0.2); BASO % 1.1 % (0.0-2.0); EOS # 0.1 K/uL (0.0-0.7); EOS % 1.9 % (0.0-4.0); HEMOGLOBIN 12.9 g/dL (11.0-16.0); LYMPH # 2.2 K/uL (1.0-4.3); LYMPH % 38.4 % (20.0-40.0); MEAN CELL VOLUME 89.5 fL (81.0-99.0); MEAN CORPUSCULAR HEMOGLOBIN 30.9 pg (27.0-31.0); MEAN CORPUSCULAR HGB CONC 34.6 g/dL (33.0-37.0); MEAN PLATELET VOLUME 9.6 fL (7.2-11.7); MONO # 0.5 K/uL (0.0-0.8); MONO % 8.1 % (0.0-10.0); NEUT # 2.9 K/uL (1.8-7.0); NEUT % 50.5 % (50.0-75.0); NRBC % 0.1 % (0.0-2.0); RBC 4.18 Mil/uL (3.80-5.20); RED CELL DISTRIBUTION WIDTH 12.4 % (11.5-14.5); WHITE BLOOD COUNT 5.7 K/uL (4.8-10.8)
[2018-01-24 07:33] LABS: ALB/GLOB RATIO 1.3 (1.0-2.1); ALT/SGPT 31 U/L (9-52); AST/SGOT 22 U/L (14-36); BLOOD UREA NITROGEN 8 mg/dL (7-17); GFR NON-AFRICAN AMERICAN > 60
[2018-01-24 08:24] VITALS: O2SAT 97
--- NOTE | 2018-01-24 09:59 | CP.PCM.DIS ---
Provider - Provider Date of Admission: 01/20/18 20:22 Attending physician: Eben Phelps MD Primary care physician: None Consults: Surgery Dr. Izquierdo Time Spent in preparation of Discharge (in minutes): 40 Hospital Course - Lab Results Lab Results: Most Recent Lab Values WBC 5.7 K/uL (4.8-10.8) 01/24/18 06:58 RBC 4.18 Mil/uL (3.80-5.20) 01/24/18 06:58 Hgb 12.9 g/dL (11.0-16.0) 01/24/18 06:58 Hct 37.4 % (34.0-47.0) 01/24/18 06:58 MCV 89.5 fL (81.0-99.0) 01/24/18 06:58 MCH 30.9 pg (27.0-31.0) 01/24/18 06:58 MCHC 34.6 g/dL (33.0-37.0) 01/24/18 06:58 RDW 12.4 % (11.5-14.5) 01/24/18 06:58 Plt Count 292 K/uL (130-400) 01/24/18 06:58 MPV 9.6 fL (7.2-11.7) 01/24/18 06:58 Neut % (Auto) 50.5 % (50.0-75.0) 01/24/18 06:58 Lymph % (Auto) 38.4 % (20.0-40.0) 01/24/18 06:58 [place] % (Auto) 8.1 % (0.0-10.0) 01/24/18 06:58 Eos % (Auto) 1.9 % (0.0-4.0) 01/24/18 06:58 Baso % (Auto) 1.1 % (0.0-2.0) 01/24/18 06:58 Neut # (Auto) 2.9 K/uL (1.8-7.0) 01/24/18 06:58 Lymph # (Auto) 2.2 K/uL (1.0-4.3) 01/24/18 06:58 [place] # (Auto) 0.5 K/uL (0.0-0.8) 01/24/18 06:58 Eos # (Auto) 0.1 K/uL (0.0-0.7) 01/24/18 06:58 Baso # (Auto) 0.1 K/uL (0.0-0.2) 01/24/18 06:58 Neutrophils % (Manual) 85 % (50-75) H 01/21/18 08:01 Lymphocytes % (Manual) 10 % (20-40) L 01/21/18 08:01 Monocytes % (Manual) 5 % (0-10) 01/21/18 08:01 Platelet Estimate Normal (NORMAL) 01/21/18 08:01 RBC Morphology Normal 01/21/18 08:01 Sodium 142 mmol/L (132-148) 01/24/18 06:58 Potassium 3.5 mmol/L (3.6-5.2) L 01/24/18 06:58 Chloride 104 mmol/L (98-107) 01/24/18 06:58 Carbon Dioxide 24 mmol/L (22-30) 01/24/18 06:58 Anion Gap 17 (10-20) 01/24/18 06:58 BUN 8 mg/dL (7-17) 01/24/18 06:58 Creatinine 0.7 mg/dL (0.7-1.2) 01/24/18 06:58 Est GFR ( Amer) > 60 01/24/18 06:58 Est GFR (Non-Af Amer) > 60 01/24/18 06:58 Random Glucose 104 mg/dL (65-105) 01/24/18 06:58 Calcium 9.0 mg/dl (8.6-10.4) 01/24/18 06:58 Magnesium 1.9 mg/dL (1.6-2.3) 01/21/18 08:01 Total Bilirubin 0.7 mg/dL (0.2-1.3) 01/24/18 06:58 AST 22 U/L (14-36) 01/24/18 06:58 ALT 31 U/L (9-52) 01/24/18 06:58 Alkaline Phosphatase 58 U/L (38-126) 01/24/18 06:58 Total Protein 7.2 g/dL (6.3-8.3) 01/24/18 06:58 Albumin 4.0 g/dL (3.5-5.0) 01/24/18 06:58 Globulin 3.2 gm/dL (2.2-3.9) 01/24/18 06:58 Albumin/Globulin Ratio 1.3 (1.0-2.1) 01/24/18 06:58 Lipase 121 U/L (23-300) 01/20/18 17:41 Urine Color Yellow (YELLOW) 01/20/18 17:08 Urine Clarity Clear (Clear) 01/20/18 17:08 Urine pH 7.0 (5.0-8.0) 01/20/18 17:08 Ur Specific [place] 1.014 (1.003-1.030) 01/20/18 17:08 Urine Protein Negative mg/dL (NEGATIVE) 01/20/18 17:08 Urine Glucose (UA) Normal mg/dL (Normal) 01/20/18 17:08 Urine Ketones 1+ mg/dL (NEGATIVE) H 01/20/18 17:08 Urine Blood Negative (NEGATIVE) 01/20/18 17:08 Urine Nitrate Negative (NEGATIVE) 01/20/18 17:08 Urine Bilirubin Negative (NEGATIVE) 01/20/18 17:08 Urine Urobilinogen Normal mg/dL (0.2-1.0) 01/20/18 17:08 Ur Leukocyte Esterase Neg La/uL (Negative) 01/20/18 17:08 Urine WBC (Auto) < 1 /hpf (0-5) 01/20/18 17:08 Urine RBC (Auto) 1 /hpf (0-3) 01/20/18 17:08 Ur Squamous Epith Cells 2 /hpf (0-5) 01/20/18 17:08 Urine Bacteria Rare (<OCC) 01/20/18 17:08 Urine HCG, Qual Negative (NEGATIVE) 01/20/18 17:08 - Hospital Course Hospital Course: Hospitalist Discharge Summary Hospitalist Progress Note Patient was seen and examined at 9:20 AM 01/24/18 Bed 552 B with the help of [place] translation provided by Nurse Chaya 47 year old female who was admitted on 01/21/18 for treatment of SBO. CT Abdomen and Pelvis (01/21/18): SBO roughly at the jejunoileal junction, possibly secondary to surgical adhesion (03/2017) Abdominal Flat plate (01/22): No obstruction noted. NGT in place She was made NPO, NGT placed, and treated with IVF After watery bowel movements she was started on clear liquids 01/23/18 and this was advanced to soft She is currently tolerating her diet without N/V, passing flatus, and having soft to hard bowel movements this morning Patient has been cleared by Surgery Team for discharge Patient is also stable for discharge from Medicine Team perspective Please see patient's chart for full details of her care Currently upon FULL ROS: NO reynold pain/palpitations NO SOB/coughing/wheezing NO dysphagia/odynophagia NO abdominal pain NO n/v/d/c NO burning/pain with urination NO lightheadedness/dizziness NO headache NO new changes in vision NO new changes in hearing NO paresthesias General: AAOx3, NAD HEENT: NCA, EOMI, PERRLA, NO cervical/supraclavicular/submandibular lymphadenopathy, NO pharyngeal erythema/exudate, Nasal turbinates are nonerythematous/nonedematous, NO thyromegaly Cardio: NS1 and NS2, NO M/R/G Resp: CTA B/L, NO R/R/W GI: BSx4, Soft, NT, ND, NO HSM, NO guarding/rebound tenderness Ext: Pulses are strong and equal B/L UE and LE, Capillary refill is 2 seconds, NO edema Neuro: CN II through XII are grossly intact Assessments: 1). SBO 2). Hx HTN: due to hear rate in the 50s will discharge on 25 mg instead of 50 mg 3). Hx Gastritis: will discharge on Omeprazole 40 mg PO 1x/day 4). 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 You stated that you do NOT have a primary care doctor. Therefore please schedule follow up to take place in the next 7 days with the following clinic to help coordinate your health care: [facility] [address] [place], [place] 2). Please have the following prescription filled at your pharmacy on your way home from the hospital and start taking them on 01/25/18. Future prescriptions refills will have to be obtained through the above clinic. Atenolol 25 mg, 1 tablet by mouth 1 time a day (8 AM), Dispense #30, NO refills Omeprazole 40 mg, 1 tablet by mouth 1 time a day (8 AM), Dispense #30, NO refills 3). Through the clinic please also make sure that you schedule a [employer] exam. 4). Should your symptoms return, please go to the nearest emergency room. 5). Please take care and be well. Eben Phelps D.O. Discharge Exam - Head Exam Head Exam: ATRAUMATIC, NORMAL INSPECTION, NORMOCEPHALIC Discharge Plan - Discharge Medications Prescriptions: Atenolol [Tenormin] 25 mg PO DAILY #30 tablet Omeprazole 40 mg PO DAILY #30 capsule.dr - Follow Up Plan Condition: SERIOUS Disposition: HOME/ ROUTINE Additional Instructions: The following instructions were explained to patient with the help of Nurse Chaya who translated [place] and a copy will need to be provided to her in [place]: 1). You stated that you do NOT have a primary care doctor. Therefore please schedule follow up to take place in the next 7 days with the following clinic to help coordinate your health care: [address] 2). Please have the following prescription filled at your pharmacy on your way home from the hospital and start taking them on 01/25/18. Future prescriptions refills will have to be obtained through the above clinic. Atenolol 25 mg, 1 tablet by mouth 1 time a day (8 AM), Dispense #30, NO refills Omeprazole 40 mg, 1 tablet bymouth 1 time a day (8 PM), Dispense #30, NO refills 3). Through the clinic please also make sure that you schedule a [employer] exam. 4). Should your symptoms return, please go to the nearest emergency room. 5). Please take care and be well.
[2018-01-24] MEDS ORDERED: Potassium Chloride 20 mEq ER Tab PO ONE (10:00)
[2018-01-24 10:31] VITALS: BP 126/77; PULSE 65
== END 2018-01-24 14:48 | disposition home or self-care (01) | DRG 181 ==
LOC: C.ER 16:29 → C.9E 20:22 → C.5S 01-21 01:21
PROVIDERS: ADMIT Family Medicine; ATTEND Family Medicine
DX: K56.600 Partial intestinal obstruction, unspecified as to cause (principal); K29.70 Gastritis, unspecified, without bleeding; I10 Essential (primary) hypertension